=== PATIENT | female | born 1965 | race Caucasian/White ===

== ENCOUNTER 2020-02-21 11:44 | Emergency (ER) | payer BC, SELFPAY ==
[2020-02-21 11:45] VITALS: BP 123/72; PULSE 102; RESP 18; TEMP 36.3; O2SAT 99; BMI 23.3
[2020-02-21 12:04] VITALS: BP 123/72; PULSE 102; RESP 18; TEMP 36.3; O2SAT 99
--- NOTE | 2020-02-21 12:05 | ED.DCSUM_ITS ---
History of Present Illness Chief Complaint: Back Informant: Patient Onset: Days Context: Gradual Onset Current Severity: Moderate Maximum Severity: Severe Narrative: Patient presents secondary to back pain. She states she woke 2 days ago with pain in her lower back. She had felt fine the night before and had not done any strenuous lifting or twisting. She was seen at urgent care. She was told she had a UTI and placed on Bactrim and was told that the muscles in her back were tight. She was given prescriptions for naproxen and Flexeril. In spite of taking these for the last 2 days patient states her back pain is the same or worse. She denies any prior problems with her back. No trauma. No fever or chills. She states pain will occasionally go down her right leg. - Past Medical History (1) Crohn's disease Status: Chronic Past Medical History - Allergies and Home Meds Allergies/Adverse Reactions: Allergies Penicillins [PCN] Allergy (Verified 02/21/20 11:45) PT UNSURE OF REACTION Primary Care Physician: Aaron Gutierrez DO [Primary Care Provider] - Prior records reviewed: Yes Surgical History: colectomy Review of Systems General: Denies: Chills, Fever Eyes: Denies: Visual changes - bilaterally ENT: Denies: Bilateral ear pain Cardiovascular: Denies: Chest pain Respiratory: Denies: Dyspnea, Cough Gastrointestinal: Denies: Abdominal pain, Vomiting, Diarrhea Genitourinary: Denies: Dysuria Musculoskeletal: Reports: Back pain. Denies: Extremity Pain Neurological: Denies: Headache, Weakness, Parasthesia Hematologic: Denies: Easy bruising, Easy bleeding Allergy: Denies: Uticaria Physical Exam Vital Signs/Narrative: Vital Signs Temp Pulse Resp BP Pulse Ox 02/21/20 12:04 97.4 F L 102 H 18 123/72 H 99 02/21/20 11:45 97.4 F L 102 H 18 123/72 H 99 Inital Vital Signs reviewed: Yes General: Well nourished, Well developed Head: Normocephalic ENT: Moist mucous membranes Neck: Supple Cardiovascular: Regular rate, Regular rhythm Respiratory: No distress, CTA bilaterally Abdomen: Soft, Nontender, Normal bowel sounds, No masses Back: - - Mild midline tenderness in the lumbar region with moderate paraspinal tenderness bilaterally. No erythema or warmth noted. No abrasions or e cchymosis. Skin: Normal color Neurological: Alert, Oriented x3, Normal Strength, Normal Sensation Psychological: Normal affect Diagnostic/Tx/Re-eval Laboratory Results 02/21/20 12:29 Urine Color Yellow Urine Clarity Sl. Cloudy Urine pH 5.0 Ur Specific [place] 1.015 Urine Protein Negative Urine Glucose (UA) Normal Urine Ketones Negative Urine Occult Blood Negative Urine Nitrite Negative Urine Bilirubin Negative Urine Urobilinogen Normal Ur Leukocyte Esterase 25 H Urine RBC 0 SEEN Urine WBC 0-5 SEEN Ur Squamous Epith Cells 0-5 SEEN Urine Bacteria 1+ Urine Mucus 0 SEEN - Medical Decision Making Patient was given oxycodone for pain here. She is been taking naproxen and Flexeril. On repeat evaluation pain is improved. Urine still shows a slight amount of infection, but she has not yet finished with her antibiotics. She was encouraged to continue the full course. She will be given a prescription for Percocet for home for breakthrough pain. ED Disposition - Plan for ED Patient: Disposition: Home or Assisted Living Diagnosis: Back pain Instructions: ED Neck Back Pain General Prescriptions: Oxycodone HCl/Acetaminophen [Percocet 5/325] 1 tablet PO Q6H PRN PRN 3 Days #10 tablet PRN Reason: Pain Transmission Status: Sent to [id number] Referrals: Aaron Gutierrez DO [Primary Care Provider] -
[2020-02-21] MEDS: oxyCODONE 5 MG Tablet 10 MG PO (12:18)
[2020-02-21] MEDS: Lidocaine 5% Patch 1 PATCH TOPICAL (12:26)
[2020-02-21 12:40] LABS: Mucous, Urine 0 SEEN /hpf (<or=2+); Red Blood Cells-Urine 0 SEEN /hpf (0-5)
[2020-02-21 12:46] LABS: Color, Urine Yellow (Yellow); Glucose, Dipstick Normal (Normal); Ketone-Dipstick Negative (Negative); Leukocyte Esterase-Dipstick 25 /ul (Negative); Nitrite-Dipstick Negative (Negative); Occult Blood-Urine Negative /ul (Negative); Protein-Dipstick Negative (Negative); Specific Gravity, Urine 1.015 (1.002-1.030); Urine Bilirubin Dipstick Negative (Negative); Urine Clarity Sl. Cloudy (Clear); Urine Urobilinogen Normal (Normal)
[2020-02-21 13:11] LABS: Bacteria 1+ /hpf (None Seen); Squamous Epithelial Cells - UA 0-5 SEEN /hpf (5-10); White Blood Cells 0-5 SEEN /hpf (0-5)
[2020-02-21 14:12] VITALS: BP 121/87; BP 123/72; PULSE 102; PULSE 87; RESP 18; TEMP 36.3; O2SAT 99
== END 2020-02-21 14:13 | disposition home or self-care (01) ==
PROVIDERS: Emergency Provider Emergency Medicine; PCP Family Medicine
DX: M54.5 Low back pain (principal); N39.0 Urinary tract infection, site not specified; Z79.2 Long term (current) use of antibiotics
CPT/HCPCS: 81001; 99284